=== PATIENT | male | born 1965 | race Caucasian/White ===

== ENCOUNTER 2018-12-07 13:13 | Outpatient (REF) | payer MEDICARE, MEDICAID, SELFPAY ==
[2018-12-07 21:53] LABS: TSH (W/Ref FT4) 1.32 uIU/mL (0.358-3.74); Vitamin B12 448 pg/mL (193-986)
[2018-12-07 22:34] LABS: Hemoglobin A1C 6.3 % (4.5-6.2)
[2018-12-09 15:22] LABS: Albumin 62.7 % (55.8-66.1); Total Protein 7.3 g/dl (6.3-8.2)
== END 2018-12-07 13:33 ==
LOC: NCHCN 13:13
PROVIDERS: PCP Internal Medicine; Visit Provider Internal Medicine
DX: F41.8 Other specified anxiety disorders (principal); N20.0 Calculus of kidney; G89.4 Chronic pain syndrome; G62.9 Polyneuropathy, unspecified; R73.09 Other abnormal glucose
CPT/HCPCS: 82607; 83036; 84165; 84443

== ENCOUNTER 2019-10-15 11:47 | Outpatient (REF) | payer MEDICARE, MEDICAID, SELFPAY ==
[2019-10-15 12:53] LABS: Hemoglobin A1C 6.2 % (4.5-6.2)
== END 2019-10-15 12:07 ==
LOC: NCHCN 11:47
PROVIDERS: PCP Internal Medicine; Visit Provider Internal Medicine
DX: R73.03 Prediabetes (principal)
CPT/HCPCS: 83036

== ENCOUNTER 2020-03-13 09:27 | Outpatient (REF) | payer MEDICARE, MEDICAID, SELFPAY ==
[2020-03-16 05:05] LABS: Amobarbital Negative; Barbiturates Interpretation Negative.; Butalbital Negative; Pentobarbital Negative; Secobarbital Negative
[2020-03-16 07:14] LABS: Codeine Negative ng/mL (Cutoff: 25); Dihydrocodeine Negative ng/mL (Cutoff: 25); Hydrocodone Negative ng/mL (Cutoff: 25); Hydromorphone Negative ng/mL (Cutoff: 25); Morphine 2226 ng/mL (Cutoff: 25); Naloxone Negative ng/mL (Cutoff: 25); Norhydrocodone Negative ng/mL (Cutoff: 25); Noroxycodone Negative ng/mL (Cutoff: 25); Noroxymorphone Negative ng/mL (Cutoff: 25); Opiates Interpretation Positive.
[2020-03-16 07:27] LABS: EDDP-by GC-MS Negative; Methadone Interpretation Negative.; Methadone-by GC-MS Negative
[2020-03-16 09:36] LABS: Amphetamine Negative ng/mL (Cutoff: 25); Amphetamines Interpretation Negative.; MDA (Ecstasy Metabolite) Negative ng/mL (Cutoff: 25); MDMA (Ecstasy) Negative ng/mL (Cutoff: 25); Methamphetamine Negative ng/mL (Cutoff: 25); Phentermine Negative ng/mL (Cutoff: 25); Pseudoephedrine/Ephedrine Negative ng/mL (Cutoff: 25)
[2020-03-16 10:16] LABS: 2-OH-Ethyl-Flurazepam Negative ng/mL (Cutoff: 100); 7-NH-Clonazepam Negative ng/mL (Cutoff: 100); 7-NH-Flunitrazepam Negative ng/mL (Cutoff: 50); Alpha OH-Alprazolam Negative ng/mL (Cutoff: 100); Alpha-OH-Triazolam Negative ng/mL (Cutoff: 100); Benzodiazepines Interpretation Negative.; Lorazepam Negative ng/mL (Cutoff: 100); Temazepam Negative ng/mL (Cutoff: 100)
[2020-03-16 11:50] LABS: Benzoylecgonine 754 ng/mL (Cutoff: 50); Cocaine Negative ng/mL (Cutoff: 50); Cocaine Interpretation Positive.
[2020-03-17 03:23] LABS: Phencyclidine Negative ng/mL (Cutoff: 10); Phencyclidine Interpretation Negative.
[2020-03-17 06:40] LABS: Carboxy-THC Interpretation Negative.; Delta-9 CarboxyThc by LC-MS/MS Negative ng/mL (Cutoff:<3)
[2020-03-18 23:17] LABS: Buprenorphine Negative; Norbuprenorphine Negative
== END 2020-03-13 09:47 ==
LOC: NCHCN 09:27
PROVIDERS: PCP Internal Medicine; Visit Provider Internal Medicine
DX: G89.4 Chronic pain syndrome (principal); Z79.899 Other long term (current) drug therapy
CPT/HCPCS: 80307; 80324; 80333; 80349; 80361; 80345; 80346; 80353; 80358; 83992

== ENCOUNTER 2020-05-10 12:34 | Outpatient (REF) | payer MEDICARE, MEDICAID, SELFPAY ==
[2020-05-14 05:14] LABS: Benzoylecgonine Negative ng/mL (Cutoff: 50); Cocaine Negative ng/mL (Cutoff: 50); Cocaine Interpretation Negative.
[2020-05-14 07:40] LABS: Codeine 66 ng/mL (Cutoff: 25); Dihydrocodeine Negative ng/mL (Cutoff: 25); Hydrocodone Negative ng/mL (Cutoff: 25); Hydromorphone Negative ng/mL (Cutoff: 25); Morphine 4497 ng/mL (Cutoff: 25); Naloxone Negative ng/mL (Cutoff: 25); Norhydrocodone Negative ng/mL (Cutoff: 25); Noroxycodone Negative ng/mL (Cutoff: 25); Noroxymorphone Negative ng/mL (Cutoff: 25); Opiates Interpretation Positive.
[2020-05-16 10:52] LABS: Amphetamine Negative ng/mL (Cutoff: 25); Amphetamines Interpretation Negative.; MDA (Ecstasy Metabolite) Negative ng/mL (Cutoff: 25); MDMA (Ecstasy) Negative ng/mL (Cutoff: 25); Methamphetamine Negative ng/mL (Cutoff: 25); Phentermine Negative ng/mL (Cutoff: 25); Pseudoephedrine/Ephedrine Negative ng/mL (Cutoff: 25)
[2020-05-16 12:02] LABS: Buprenorphine Negative; Norbuprenorphine Negative
[2020-05-17 02:08] LABS: Carboxy-THC Interpretation Negative.; Delta-9 CarboxyThc by LC-MS/MS Negative ng/mL (Cutoff:<3)
[2020-05-17 07:25] LABS: 2-OH-Ethyl-Flurazepam Negative ng/mL (Cutoff: 100); 7-NH-Clonazepam Negative ng/mL (Cutoff: 100); 7-NH-Flunitrazepam Negative ng/mL (Cutoff: 50); Alpha OH-Alprazolam Negative ng/mL (Cutoff: 100); Alpha-OH-Triazolam Negative ng/mL (Cutoff: 100); Benzodiazepines Interpretation Negative.; Lorazepam Negative ng/mL (Cutoff: 100); Temazepam Negative ng/mL (Cutoff: 100)
[2020-05-17 07:51] LABS: EDDP-by GC-MS Negative; Methadone Interpretation Negative.; Methadone-by GC-MS Negative
[2020-05-18 04:18] LABS: Phencyclidine Negative ng/mL (Cutoff: 10); Phencyclidine Interpretation Negative.
[2020-05-19 12:26] LABS: Amobarbital Negative; Barbiturates Interpretation Negative.; Butalbital Negative; Pentobarbital Negative; Secobarbital Negative
== END 2020-05-10 12:54 ==
LOC: NCHCN 12:34
PROVIDERS: PCP Internal Medicine; Visit Provider Internal Medicine
DX: G89.4 Chronic pain syndrome (principal); F11.20 Opioid dependence, uncomplicated; Z79.899 Other long term (current) drug therapy
CPT/HCPCS: 80307; 80324; 80333; 80349; 80361; 80345; 80346; 80353; 80358; 83992

== ENCOUNTER 2024-08-30 11:25 | Emergency (ER) | payer OTHER, MEDICAID, SELFPAY ==
[2024-08-30 11:31] VITALS: BP 139/77; PULSE 69; RESP 16; TEMP 36.9; O2SAT 95
--- NOTE | 2024-08-30 12:29 | DI.RAD_ITS ---
Exam(s) XR FINGER RT INDEX EXAM: XR FINGER RT INDEX CLINICAL HISTORY: pain s/p crush injury. TECHNIQUE: 2D digital imaging was performed. Three views. COMPARISON: No exams were available for comparison FINDINGS: BONES: No acute fracture is present. No bony destructive lesion is seen. JOINTS: No dislocation present. SOFT TISSUE: Gauze around index finger. Soft tissue laceration and swelling. No foreign body. IMPRESSION: Soft tissue laceration. No evidence of fracture or foreign body. DATA REPOSITORY: RADIATION DOSE DELIVERED:
--- NOTE | 2024-08-30 13:18 | ED.GENADUL_ITS ---
Discharge Plan Disposition Patient Disposition: Home Condition: Stable Discharge Details Clinical Impression: Laceration of finger of right hand with damage to nail Primary Care Provider: Mango Swann ED Provider: Maddie Lane Home Meds and New Rx's Prescriptions: New cephalexin 500 mg capsule 500 mg PO BID 7 Days Qty: 14 0RF Rx Instructions: Take 1 capsule twice daily for the next 7 days No Action mirtazapine 15 MG tablet,disintegrating 15 mg PO DAILY duloxetine 60 MG capsule,delayed release(DR/EC) 60 mg PO DAILY naloxone [Narcan] 4 MG spray,non-aerosol 4 mg NS PRN Qty: 2 citalopram [Celexa] 40 MG tablet 40 mg PO HS cod liver oil 1 EACH capsule 1 ea PO DAILY PRN PRN clonazepam [Klonopin] 0.5 MG tablet 0.5 mg PO TID morphine [MS Contin] 30 MG tablet extended release 30 - 60 mg PO TID Patient Comments: 05/31/15-One of (3) prescriptions written at a time, all on same date per [facility] records, current and historical. #56 each prescription. pramipexole [Mirapex] 0.5 MG tablet 0.5 mg PO DAILY pregabalin [Lyrica] 225 MG capsule 225 mg PO BID methadone 150 mg PO/SL DAILY Discharge Instructions Instructions: Common Finger Injuries ED, Laceration Repair With Stitches ED Additional Instructions: He will most likely lose that fingernail however we did place it back into the fold so that a new nail will grow. Please have 4 of the stitches removed in 7 to 10 days. 3 of the sutures will dissolve on their own. No soaking or swimming. After 24 hours you may wash under running soap and water. Please keep clean and dry change dressing daily. Take the antibiotics as directed twice daily with yogurt or a probiotic. Follow up with primary care provider in 3-5 days. Return to ED sooner if any worsening or concerns. Please take Tylenol or Ibuprofen with food every 4-6 hours as needed for pain and swelling. Referrals: Mango Swann MD [Primary Care Provider] - 3 days HPI General Mode of arrival: ambulatory . Date/Time Provider Initiated Documentation: 08/30/24 11:55 . Limitations to Documentation: no limitations . Information obtained by: patient, RN notes reviewed and old records reviewed . HPI Narrative: 58 year old male presents with right index finger laceration which occured at 0800 this am while picking up a compressor. Patient has an avulsion of his nail from the nail bed and a laceration through the tip of his finger. Distal CMS intact. Unknown when last tetanus was. Wound is contaminated. Related Data Home Medications ?Medication ?Instructions ?Recorded ?Confirmed citalopram 40 mg tablet (Celexa) 40 mg PO HS 05/31/15 08/30/24 clonazepam 0.5 mg tablet (Klonopin) 0.5 mg PO TID 05/31/15 08/30/24 cod liver oil 1 ea PO DAILY PRN PRN 05/31/15 08/30/24 morphine 30 mg tablet,extended 30 - 60 mg PO TID chronic pain 05/31/15 08/30/24 release (MS Contin) pramipexole 0.5 mg tablet (Mirapex) 0.5 mg PO DAILY 05/31/15 08/30/24 pregabalin 225 mg capsule (Lyrica) 225 mg PO BID fibromyalgia 05/31/15 08/30/24 duloxetine 60 mg capsule,delayed 60 mg PO DAILY 01/21/18 08/30/24 release mirtazapine 15 mg disintegrating 15 mg PO DAILY 01/21/18 08/30/24 tablet naloxone 4 mg/actuation nasal 4 mg NS PRN #2 sprays 01/21/18 08/30/24 spray (Narcan) cephalexin 500 mg capsule 500 mg PO BID laceration 7 days 08/30/24 #14 caps methadone 150 mg PO/SL DAILY 08/30/24 08/30/24 Previous Rx's ?Medication ?Instructions ?Recorded cephalexin 500 mg capsule 500 mg PO BID laceration 7 days 08/30/24 #14 caps Allergies Allergy/AdvReac Type Severity Reaction Status Date / Time No Known Allergies Allergy Unverified 08/30/24 11:39 General Stated Complaint: Laceration YVETTE: 3 Review of Systems Integumentary/Breasts Skin/Breast: Reports as per HPI and Reports wounds Exam Extrem Right upper extremity: hand Details: laceration 2nd digit dorsal aspect distal Details: irregular, contaminated and involving subcutaneous tissue Hand/finger images: 2 1. Laceration 2. Laceration 3. Nailbed avulsion Course Vital Signs Vital signs: Vital Signs Temperature 36.9 C 08/30/24 11:31 Pulse 69 08/30/24 11:31 Respiratory Rate 16 08/30/24 11:31 Blood Pressure 139/77 08/30/24 11:31 Pulse Oximetry 95 08/30/24 11:31 Temperature 36.9 C 08/30/24 11:31 Temperature Source Tympanic 08/30/24 11:31 Pulse 69 08/30/24 11:31 Respiratory Rate 16 08/30/24 11:31 Blood Pressure 139/77 08/30/24 11:31 Blood Pressure Position Sitting 08/30/24 11:31 Pulse Oximetry 95 08/30/24 11:31 Oxygen Delivery Method Room Air 08/30/24 11:31 Oxygen Flow Rate 0 08/30/24 11:31 Pain Level 8 08/30/24 11:31 Procedures Laceration Laceration 1: Site: upper extremity (Right hand index finger) Side (If applicable): right Size (cm): 1 Description: irregular and contaminated Local anesthetic: Lidocaine 1% Amount of anesthesia used (mL): 4 Pre-repair: wound explored, irrigated extensively and deep structures intact Skin layer closed with: nylon Size (cm): 4-0 Number of sutures: 4 Technique: simple, interrupted Subcutaneous layer closed with: chromic gut Number of sutures: 2 Technique: other (Horizontal mattress) Nerve Block Nerve Block 1: Time out performed: Yes Local Anesthetic: Lidocaine 1% Amount of anesthesia used (mL): 4 Side: right Nerve Blocks: digital Procedure Successful: Yes Patient Tolerated Procedure: well and no complications Complications: none Medical Decision Making 58 year old male presents with right index finger laceration which occured at 0800 this am while picking up a compressor. Patient has an avulsion of his nail from the nail bed and a laceration through the tip of his finger. Distal CMS intact. Unknown when last tetanus was. Wound is contaminated. Will perform digital block, wound care, give tetanus and laceration repair. Nail is avulsed, nail is been removed from the epicondyle fold. Nail reinserted into the epicondyle fold with 5.0 Chromic Gut sutures. Patient tolerated with some difficulty, finger was reanesthetized which was successful and anesthesia achieved. Cleaned with chlorhexidine and sterile normal saline. 4 simple interrupted sutures placed to the laceration just horizontally to the nail. Xeroform dressing applied instructed on home care suture removal and strict return instructions. Due to the contaminated nature of the laceration cephalexin was given to the patient first dose here and given 7 days twice daily. This text was generated using [employer] system, please disregard any oddities of phrase or misspellings. Quality:SDOH Health Related Social Needs: 2 No Data to Display PFSH All Active Problems (Updated 08/30/24 @ 14:[address] NP) Laceration of finger of right hand with damage to nail (Acute) Medical History Abdominal pain Depression Anxiety Mood disorder Chronic pain PTSD (post-traumatic stress disorder) Surgical History Colonoscopy - MAC (02/20/18) Social History Smoking/Tobacco Use Status: Current every day Smoking risk assessment performed?: Yes Drug use: Occasionally
[2024-08-30] MEDS: Lidocaine 1% Multi-Dose 20 ML VIAL IJ (13:31)
== END 2024-08-30 15:11 | disposition home or self-care (01) ==
PROVIDERS: Emergency Provider Registered Nurse Emergency; PCP Internal Medicine
DX: S67.190A Crushing injury of right index finger, initial encounter (principal); S61.310A Laceration without foreign body of right index finger with damage to nail, initial encounter; Z23 Encounter for immunization; F17.210 Nicotine dependence, cigarettes, uncomplicated; W23.0XXA Caught, crushed, jammed, or pinched between moving objects, initial encounter
CPT/HCPCS: 11730; 12001; 90471; 90715; 99283; 73140; J2003